=== PATIENT | male | born 1980 ===

== ENCOUNTER 2017-12-25 09:27 | Emergency (ER) | payer OTHER ==
[2017-12-25 10:07] VITALS: BP 112/76
--- NOTE | 2017-12-25 10:23 | UC ---
Dental HPI - HPI Summary HPI Summary: Pt presents with dental pain. He tells me that last night his right lower wisdom tooth began to hurt him. He says that he knows he needs it pulled, but his dentist says he needs to see an oral surgeon and he cannot afford this. Denies fever/chills. He is able to eat and drink. - History of Current Complaint Chief Complaint: UCDentalProblem Stated Complaint: DENTAL Time Seen by Provider: 12/25/17 10:22 Hx Obtained From: Patient Onset/Duration: Sudden Onset Severity: Mild Pain Intensity: 4 Pain Scale Used: 0-10 Numeric - Allergies/Home Medications Allergies/Adverse Reactions: Allergies Allergy/AdvReac Type Severity Reaction Status Date / Time No Known Allergies Allergy Verified 12/25/17 10:07 PMH/Surg Hx/FS Hx/Imm Hx - Additional Past Medical History Additional PMH: None - Surgical History Surgical History: Yes Surgery Procedure, Year, and Place: nose straightened; Right wrist surgery - Family History Known Family History: Positive: Other - cancer - Social History Lives: With Family Alcohol Use: Rare Substance Use Type: None Smoking Status (MU): Heavy Every Day Tobacco Smoker Type: Cigarettes Amount Used/How Often: 1/2 PPD Length of Time of Smoking/Using Tobacco: 15+ years Review of Systems Constitutional: Negative Skin: Negative ENT: Dental Pain Respiratory: Negative Cardiovascular: Negative Gastrointestinal: Negative Neurovascular: Negative Neurological: Negative Psychological: Negative All Other Systems Reviewed And Are Negative: Yes Physical Exam Triage Information Reviewed: Yes Appearance: Well-Appearing, No Pain Distress, Well-Nourished Vital Signs: Initial Vital Signs Temp 97.2 F 12/25/17 10:02 Pulse 55 12/25/17 10:02 Resp 14 12/25/17 10:02 BP 112/76 12/25/17 10:02 Pulse Ox 99 12/25/17 10:02 Vital Signs Reviewed: Yes ENT: Positive: Hearing grossly normal, Pharynx normal, Dental tenderness - Tooth 32, Uvula midline. Negative: Pharyngeal erythema, Tonsillar swelling, Tonsillar exudate Dental: Positive: Percussion Tenderness @ - Tooth 32. Negative: Gross Decay/ Caries @, Dental Fracture @, Abscess @, Cervical Lymphadenopathy, Bleeding Neck: Positive: Supple, Nontender, No Lymphadenopathy Respiratory: Positive: No respiratory distress, No accessory muscle use Cardiovascular: Positive: RRR, Pulses Normal Neurological: Positive: Alert Psychological: Positive: Age Appropriate Behavior Skin: Negative: rashes, significant lesion(s) Dental Complaint Course/Dx - Course Course Of Treatment: Tooth 32 pain. Will cover him with antibiotic and have him f/u with his dentist. - Differential Dx/Diagnosis Provider Diagnoses: Tooth 32 pain Discharge - Sign-Out/Discharge Documenting (check all that apply): Discharge/Admit/Transfer - Discharge Plan Condition: Stable Disposition: HOME Prescriptions: Amoxicillin/Clavulanate TAB* [Augmentin TAB 500 mg*] 500 mg PO BID #14 tab Magic Mouth Was-LANCE/MAAL/LIDO* 5 ml SWISH SPIT QID PRN #100 ml PRN Reason: Pain Patient Education Materials: Dental Abscess (ED) Referrals: No Primary Care Phys,NOPCP [Primary Care Provider] - Additional Instructions: If you develop a fever, shortness of breath, chest pain, new or worsening symptoms - please call your PCP or go to the ED. - Billing Disposition and Condition Condition: STABLE Disposition: HOME
== END 2017-12-25 11:11 | disposition home or self-care (01) ==
LOC: UCEAST 09:27
DX: K08.89 Other specified disorders of teeth and supporting structures (principal); F17.210 Nicotine dependence, cigarettes, uncomplicated
CPT/HCPCS: 99212; G0463